=== PATIENT | female | born 1965 | race Caucasian/White ===

== ENCOUNTER → 2017-04-16 | Outpatient (CLI) | payer OTHER ==
[~2017-04-16] MED LIST: BYSTOLIC5 MG PO; CELEXA; CELEXA10 MG/5 ML PO; CLARITIN; DARVOCET-N-101 UDTAB PO; HYGROTON 2525 MG/TAB; METADATE; MOTRIN 800800 MG/TAB PO; PATANOL OPHTHALM5 ML; SYNTHROID0.05 MG PO; SYNTHROID0.088 MG/T PO; VICODIN 5/5001 UDTAB PO; VIGAMOX 0.5% 3 M3 ML OP; ZYRTEC10 MG PO
== END ==
LOC: COL.RAD 12:28
DX: M50.321 Other cervical disc degeneration at C4-C5 level (principal); M50.322 Other cervical disc degeneration at C5-C6 level

== ENCOUNTER → 2017-12-16 | Outpatient (CLI) | payer OTHER ==
[~2017-12-16] MED LIST changes: -BYSTOLIC5 MG PO; -HYGROTON 2525 MG/TAB
== END ==
LOC: COL.RAD 08:51
DX: M75.82 Other shoulder lesions, left shoulder (principal); M75.112 Incomplete rotator cuff tear or rupture of left shoulder, not specified as traumatic; M25.712 Osteophyte, left shoulder; M19.012 Primary osteoarthritis, left shoulder

== ENCOUNTER → 2018-01-28 | Outpatient (CLI) | payer OTHER | LOC: COL.RAD 09:23 | DX: K22.2 Esophageal obstruction (principal); Z85.828 Personal history of other malignant neoplasm of skin; Z98.890 Other specified postprocedural states ==

== ENCOUNTER 2018-02-21 09:48 | Outpatient (RCR) | payer OTHER ==
[2018-03-20] MEDS ORDERED: BYSTOLIC5 MG PO (09:07)
[2018-03-20] MEDS ORDERED: HYGROTON 2525 MG/TAB (09:07)
== END 2018-05-22 | disposition home or self-care (01) ==
LOC: WSST
DX: K22.2 Esophageal obstruction (principal)

== ENCOUNTER → 2018-02-28 | Outpatient (CLI) | payer OTHER | LOC: COL.RAD 10:30 | DX: K22.2 Esophageal obstruction (principal) ==

== ENCOUNTER 2018-03-20 01:14 | Emergency (ER) | payer OTHER ==
[~2018-03-20] VITALS: Ht 180.3 cm; Wt 86.4 kg
[2018-03-20 02:30] VITALS: BP 118/68; PULSE 76; TEMP 98.9
[2018-03-20] MEDS ORDERED: HYGROTON 2525 MG/TAB (09:07)
[2018-03-20] MEDS ORDERED: BYSTOLIC5 MG PO (09:07)
== END 2018-03-20 02:30 | disposition home or self-care (01) ==
LOC: COL.ER 01:14
DX: S00.33XA Contusion of nose, initial encounter (principal); S46.912A Strain of unspecified muscle, fascia and tendon at shoulder and upper arm level, left arm, initial encounter; I10 Essential (primary) hypertension; F32.9 Major depressive disorder, single episode, unspecified; E03.9 Hypothyroidism, unspecified; W18.39XA Other fall on same level, initial encounter; W22.8XXA Striking against or struck by other objects, initial encounter; Y92.828 Other wilderness area as the place of occurrence of the external cause
CPT/HCPCS: J0595; J2405

== ENCOUNTER 2018-03-20 08:56 | Emergency (ER) | payer OTHER ==
[~2018-03-20] VITALS: Ht 180.3 cm; Wt 88.6 kg
[2018-03-20 09:03] VITALS: TEMP 98.5
[2018-03-20] MEDS ORDERED: BYSTOLIC5 MG PO (09:07)
[2018-03-20] MEDS ORDERED: HYGROTON 2525 MG/TAB (09:07)
[2018-03-20 10:32] VITALS: BP 121/70; PULSE 77
== END 2018-03-20 10:36 | disposition short-term general hospital (02) ==
LOC: COL.ER 08:56
DX: S12.000A Unspecified displaced fracture of first cervical vertebra, initial encounter for closed fracture (principal); I10 Essential (primary) hypertension; E03.9 Hypothyroidism, unspecified; Z90.49 Acquired absence of other specified parts of digestive tract; W22.8XXA Striking against or struck by other objects, initial encounter; V91.29XA Fall due to collision between unspecified watercraft and other watercraft or other object, initial encounter

== ENCOUNTER → 2018-06-13 | Outpatient (CLI) | payer OTHER ==
[~2018-06-13] MED LIST changes: +BYSTOLIC5 MG PO; +HYGROTON 2525 MG/TAB
== END ==
LOC: COL.RAD 12:18
DX: S12.001D Unspecified nondisplaced fracture of first cervical vertebra, subsequent encounter for fracture with routine healing (principal); M47.812 Spondylosis without myelopathy or radiculopathy, cervical region; R56.9 Unspecified convulsions; J34.89 Other specified disorders of nose and nasal sinuses
CPT/HCPCS: A9585

== ENCOUNTER 2019-10-11 16:28 | Emergency (ER) | payer OTHER ==
[~2019-10-11] VITALS: Ht 180.3 cm; Wt 84.1 kg
[2019-10-11 16:48] VITALS: BP 112/57; TEMP 97.4
[2019-10-11 18:30] VITALS: PULSE 71
== END 2019-10-11 18:30 | disposition home or self-care (01) ==
LOC: COL.ER 16:28
DX: S61.411A Laceration without foreign body of right hand, initial encounter (principal); F32.9 Major depressive disorder, single episode, unspecified; Z23 Encounter for immunization; Z85.43 Personal history of malignant neoplasm of ovary; W26.8XXA Contact with other sharp object(s), not elsewhere classified, initial encounter; Y92.009 Unspecified place in unspecified non-institutional (private) residence as the place of occurrence of the external cause

== ENCOUNTER → 2020-06-19 | Outpatient (CLI) | payer OTHER | LOC: MC.RAD 08:00 | DX: Z12.31 Encounter for screening mammogram for malignant neoplasm of breast (principal) ==

== ENCOUNTER → 2021-06-25 | Outpatient (CLI) | payer OTHER | LOC: COL.RAD 10:08 | DX: N12 Tubulo-interstitial nephritis, not specified as acute or chronic (principal); N10 Acute pyelonephritis ==

== ENCOUNTER → 2021-08-28 | Outpatient (CLI) | payer OTHER | LOC: MC.RAD 07:55 | DX: Z12.31 Encounter for screening mammogram for malignant neoplasm of breast (principal) ==

== ENCOUNTER 2022-09-28 08:34 | Outpatient (RCR) | payer BC | END 2022-10-06 | disposition still patient (30) | LOC: WSST | DX: R13.10 Dysphagia, unspecified (principal) ==

== ENCOUNTER → 2022-10-02 | Outpatient (CLI) | payer BC | LOC: COL.RAD 09:42 | DX: K21.9 Gastro-esophageal reflux disease without esophagitis (principal); R19.2 Visible peristalsis ==

== ENCOUNTER → 2022-11-09 | Outpatient (CLI) | payer BC | LOC: COL.RAD 15:58 | DX: R13.10 Dysphagia, unspecified (principal) ==

== ENCOUNTER → 2024-04-27 | Outpatient (CLI) | payer BC ==
[~2024-04-27] MED LIST changes: +Iohexol 300 - 100 ML VIAL IV ONE; +NS 100 ML IV SCH
== END ==
LOC: COL.RAD 09:48
DX: T17.908A Unspecified foreign body in respiratory tract, part unspecified causing other injury, initial encounter (principal); R06.02 Shortness of breath
CPT/HCPCS: Q9967